=== PATIENT | female | born 1960 | race Caucasian/White ===

== ENCOUNTER 2019-02-10 08:04 | Emergency (ER) | payer BC ==
[2019-02-10 08:28] VITALS: BP 137/65
[2019-02-10] MEDS ORDERED: BUFFERED LIDOCAINE 10 ML SYRINGE SUBQ STA (08:45)
--- NOTE | 2019-02-10 09:13 | ED Physician Documentation ---
PD HPI UPPER EXT INJURY - Stated complaint Stated Complaint: R FINGER INJ - Chief complaint Chief Complaint: Ext Problem - History obtained from History obtained from: Patient - History of Present Illness Location: Right, Finger (index) Type of injury: Foreign body Where injury occurred: Home Timing - onset: Today Timing - duration: Minutes Timing - details: Abrupt onset, Still present Worsened by: Moving, Palpating Associated symptoms: No: Weakness, Numbness, Tingling Contributing factors: No: Anticoagulated Similar symptoms before: Has not had sx before Recently seen: Not recently seen - Additonal information Additional information: 58-year-old female was chopping kindling and has a splinter in her right index finger she is not able to remove this without severe pain and she is come here for an anesthetization for removal Review of Systems Constitutional: denies: Fever Respiratory: denies: Cough GI: denies: Vomiting PD PAST MEDICAL HISTORY - Present Medications Home Medications: Ambulatory Orders Medication Instructions Recorded Confirmed Home Medications Unobtainable 02/10/19 02/10/19 [HOME MEDICATIONS UNOBTAINABLE] - Allergies Allergies/Adverse Reactions: Allergies Allergy/AdvReac Type Severity Reaction Status Date / Time No Known Drug Allergies Allergy Verified 02/10/19 08:28 - Social History Does the pt smoke?: No Smoking Status: Never smoker Does the pt drink ETOH?: Yes Does the pt have substance abuse?: No PD ED PE NORMAL - Vitals Vital signs reviewed: Yes (hypertensive ) - General General: Alert and oriented X 3, No acute distress, Well developed/nourished - HEENT HEENT: Atraumatic, PERRL, EOMI - Respiratory Respiratory: No respiratory distress - Derm Derm: Normal color, Warm and dry, No rash - Extremities Extremities: Other (there is a 3cm wooden splinter to the right index finger over the radial surface of the middle phlange. distal n/v is intact. 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, No motor deficit, No sensory deficit, Normal speech Eye Opening: Spontaneous Motor: Obeys Commands Verbal: Oriented GCS Score: 15 - Psych Psych: Normal mood, Normal affect Results - Vitals Vitals: Vital Signs - 24 hr 02/10/19 08:27 Temperature 36.4 C L Heart Rate 57 L Respiratory 20 Rate Blood Pressure 137/65 H O2 Saturation 99 Oxygen O2 Source Room air Procedures - Regional nerve block Nerve block site: Digital - note digit(s) (right index) Right / left: Right Nerve block anesthesia: Lidocaine 1% Nerve block aftercare: Excellent anesthesia, Patient tolerated well, No complications - FB removal FB location: Subcutaneous FB removal preparation: Local anesthesia-specify (lidocaine buffered digital block) Removal method: Other (grasped and removed intact) FB removal aftercare: No complications, Patient tolerated well, Removed successfully PD MEDICAL DECISION MAKING - ED course Complexity details: considered differential, d/w patient ED course: 58-year-old female with a large splinter to the right index finger requires lidocaine for removal. She tolerates this well. Departure - Departure Disposition: 01 Home, Self Care Clinical Impression: Splinter in skin Condition: Stable Instructions: ED Foreign Body Splinter Removal Follow-Up: Your, doctor [Other]
== END 2019-02-10 09:23 | disposition home or self-care (01) ==
LOC: ED 08:04
DX: S60.450A Superficial foreign body of right index finger, initial encounter (principal); W45.8XXA Other foreign body or object entering through skin, initial encounter; Y93.89 Activity, other specified; Y92.009 Unspecified place in unspecified non-institutional (private) residence as the place of occurrence of the external cause
CPT/HCPCS: 99281; 99282